=== PATIENT | female | born 1985 | race Caucasian/White ===

== ENCOUNTER 2016-12-19 09:35 | Emergency (ER) | payer OTHER ==
[~2016-12-19] VITALS: Ht 182.9 cm; Wt 81.6 kg
[2016-12-19] MEDS ORDERED: PYRI200T5 PO (11:01)
[2016-12-19] MEDS ORDERED: MACR100C3 PO (11:01)
[2016-12-19 11:25] VITALS: BP 121/75
== END 2016-12-19 11:24 | disposition home or self-care (01) ==
LOC: M ED 10:18
DX: N30.00 Acute cystitis without hematuria (principal); F17.210 Nicotine dependence, cigarettes, uncomplicated

== ENCOUNTER 2017-01-20 20:05 | Emergency (ER) | payer OTHER ==
[~2017-01-20] VITALS: Ht 182.9 cm; Wt 81.6 kg
[~2017-01-20 20:05] MED LIST: MACR100C3 PO; PYRI200T5 PO
[2017-01-20] MEDS ORDERED: ZOFR4TAB3 PO (20:20)
[2017-01-20] MEDS ORDERED: NS 1,000 ML IV ONE (22:00)
[2017-01-20] MEDS ORDERED: METOCLOPRAMIDE INJ 10MG/2ML VIAL (J2765) IV ONE (22:00)
[2017-01-20] MEDS ORDERED: KETOROLAC 30 MG/ML VIAL (J1885) IV ONE (22:00)
[2017-01-20 22:26] LABS: BASO % 0.4 % (0.0-1.0); EOS # 0.2 K/mm3 (0.0-0.50); EOS % 2.2 % (0.0-3.0); LARGE UNSTAINED CELL # 0.1 K/mm3 (0.0-0.4); LYMPH # 2.3 K/mm3 (1.5-4.5); MEAN CORPUSCULAR HEMOGLOBIN 30.1 pg (27.0-33.0); MEAN CORPUSCULAR HGB CONC 34.1 g/dl (32.0-36.5); MEAN CORPUSCULAR VOLUME 88.1 fl (80.0-96.0); MONO # 0.5 K/mm3 (0.0-0.8); MONO % 4.7 % (0.0-5.0); NEUTROPHILS # 6.8 K/mm3 (1.8-7.7); NEUTROPHILS % 68.6 % (36.0-66.0); PLATELET COUNT, AUTOMATED 312 k/mm3 (150-450); RED CELL DISTRIBUTION WIDTH 12.4 % (11.5-14.5)
[2017-01-20 22:50] LABS: CONTROL LINE HCG INT CTR LINE PRESENT
[2017-01-20 22:56] LABS: ALBUMIN 3.6 GM/DL (3.2-5.2); ALBUMIN/GLOBULIN RATIO 1.03 (1.00-1.93); ALKALINE PHOSPHATASE 111 U/L (45-117); ALT/SGPT 19 U/L (12-78); ANION GAP 6 MEQ/L (8-16); AST/SGOT 7 U/L (15-37); BILIRUBIN,DIRECT 0.1 MG/DL (0.0-0.2); BILIRUBIN,TOTAL 0.6 MG/DL (0.2-1.0); BLOOD UREA NITROGEN 15 MG/DL (7-18); CALCIUM LEVEL 8.8 MG/DL (8.5-10.1); CARBON DIOXIDE LEVEL 30 MEQ/L (21-32); CHLORIDE LEVEL 104 MEQ/L (98-107); CREATININE FOR GFR 0.89 MG/DL (0.55-1.02); GLOMERULAR FILTRATION RATE > 60.0 (>60); GLUCOSE, FASTING 88 MG/DL (70-105); POTASSIUM SERUM 3.8 MEQ/L (3.5-5.1); SODIUM LEVEL 140 MEQ/L (136-145); TOTAL PROTEIN 7.1 GM/DL (6.4-8.2)
[2017-01-20] MEDS ORDERED: REGL10TA6 PO (23:10)
[2017-01-20 23:22] VITALS: BP 118/77
== END 2017-01-20 23:50 | disposition home or self-care (01) ==
LOC: M ED 21:13
DX: A09 Infectious gastroenteritis and colitis, unspecified (principal); Z79.899 Other long term (current) drug therapy
CPT/HCPCS: 36415; 80048; 80076; 81001; 83690; 84703; 85025; 87086; 96374; 96375; 99283; J1885; J2765

== ENCOUNTER 2017-03-07 11:57 | Emergency (ER) | payer OTHER ==
[~2017-03-07] VITALS: Ht 182.9 cm; Wt 81.6 kg
[2017-03-07 11:57] VITALS: BP 112/76
[~2017-03-07 11:57] MED LIST changes: +REGL10TA6 PO; +ZOFR4TAB3 PO
[2017-03-07] MEDS ORDERED: AUGM875T27 PO (13:09)
[2017-03-07] MEDS ORDERED: AUGMENTIN 875 MG TAB PO ONE (13:15)
== END 2017-03-07 13:22 | disposition home or self-care (01) ==
LOC: M ED 12:27
DX: J01.90 Acute sinusitis, unspecified (principal); J02.8 Acute pharyngitis due to other specified organisms; R05 Cough

== ENCOUNTER → 2017-06-03 | Outpatient (REF) | payer OTHER ==
[~2017-06-03] MED LIST changes: +AUGM875T28 PO; -MACR100C3 PO; +MACR100C43 PO; +PYRI1TAB5 PO; -PYRI200T5 PO
== END ==
LOC: M SFHCLERA 18:48
PROVIDERS: ATTEND Nurse Practitioner Family
DX: N89.8 Other specified noninflammatory disorders of vagina (principal); R30.0 Dysuria
CPT/HCPCS: 87070; 87088; 87186; 87491; 87591; G0463